=== PATIENT | male | born 1930 | race Caucasian/White ===

== ENCOUNTER 2017-12-18 02:02 | Inpatient (IN) | payer OTHER ==
[~2017-12-18] VITALS: Ht 170.2 cm; Wt 72.4 kg
[2017-12-18 03:20] LABS: HEMATOCRIT 33.5 % (38.0-50.0); HEMOGLOBIN 11.4 G/DL (12.5-16.6); MCH 31.1 PG (29.0-34.0); MCV 91.3 FL (86-99); RBC DIS.WIDTH-SD 50.4 % (39-53); RED BLOOD COUNT 3.67 M/uL (4.00-5.50); WHITE BLOOD COUNT 7.6 K/uL (4.1-10.2)
[2017-12-18 03:43] LABS: ALBUMIN 3.4 g/dL (3.2-4.8)
[2017-12-18 03:44] LABS: CHLORIDE 100 mEq/L (99-109); SODIUM 134 mEq/L (136-147)
[2017-12-18 03:46] LABS: GLUCOSE 148 mg/dL (70-99); TOTAL PROTEIN 6.5 g/dL (6.4-8.3)
[2017-12-18 03:48] LABS: TOTAL BILIRUBIN 0.5 mg/dL (0.0-1.0); TROP-I INTERPRETATION NEGATIVE; TROPONIN-I 0.04 ng/mL (0.0-0.30)
[2017-12-18 03:50] LABS: ALKALINE PHOSPHATASE 143 IU/L (3-129); CREATININE 1.8 mg/dL (0.6-1.3); GFR ESTIMATE (CALCULATED) 38 mL/min/ (58.99-99999)
[2017-12-18 03:51] LABS: AST (GOT) 246 IU/L (2-34); UREA NITROGEN (BUN) 39 mg/dL (9-23)
[2017-12-18 03:52] LABS: DIRECT BILIRUBIN 0.2 mg/dL (0.0-0.3)
[2017-12-18 03:53] LABS: ALT (GPT) 164 IU/L (3-49); LIPASE 27 U/L (1.0-51.0)
[2017-12-18 04:56] LABS: PLATELET CLUMPS PRESENT - PLATELET COUNT APPEARS ADEQUATE
[2017-12-18 05:36] LABS: PLATELET COUNT 165 K/uL (156-360)
[2017-12-18 05:37] LABS: INTER. NORMALIZED RATIO 1.2
[2017-12-18 05:40] LABS: PTT 26.5 SEC (25-37)
[2017-12-18 08:00] VITALS: BP 114/56
[2017-12-18 10:35] LABS: TROP-I INTERPRETATION NEGATIVE; TROPONIN-I 0.01 ng/mL (0.0-0.30)
[2017-12-18 11:15] VITALS: BP 139/91
[2017-12-18 13:15] LABS: FOLIC ACID (FOLATE) > 22.0 NG/ML (5.0-22.0)
[2017-12-18 14:10] LABS: GASTRIC OCCULT BLD. NEGATIVE
[2017-12-18 14:48] LABS: HEMOGLOBIN A1c (GLYCOHEMOGLOB) 5.7 % (Below 5.7)
[2017-12-18 17:01] VITALS: BP 93/55
[2017-12-18 17:09] LABS: APPEARANCE SL.HAZY ((CLEAR)); BILIRUBIN NEGATIVE; BLOOD LARGE; COLOR YELLOW ((YELLOW)); GLUCOSE (STRIP) NEGATIVE; KETONES NEGATIVE; LEUKOCYTES NEGATIVE; NITRITE NEGATIVE; PROTEIN (STRIP) 30; SPECIFIC GRAVITY 1.018 (1.000-1.030); UROBILINOGEN 0.2 MG/DL (0.2-1.0)
[2017-12-18 17:17] LABS: TROP-I INTERPRETATION NEGATIVE; TROPONIN-I 0.12 ng/mL (0.0-0.30)
[2017-12-18 17:46] LABS: EPITHELIAL CELLS RARE /HPF; RED BLOOD CELLS TNTC /HPF (0-5); WHITE BLOOD CELLS 0-5 /HPF (0-5)
[2017-12-18 17:48] LABS: BACTERIA 1+ /HPF; MUCUS RARE /LPF; UCUL ADDED? YES
[2017-12-18 20:13] VITALS: BP 105/54; BP 93/52
[2017-12-19] VITALS (7 sets, daily range): BP systolic 96–136; BP diastolic 45–62
[2017-12-19 05:15] LABS: HEMATOCRIT 31.2 % (38.0-50.0); HEMOGLOBIN 10.3 G/DL (12.5-16.6); MCH 30.3 PG (29.0-34.0); MCV 91.8 FL (86-99); PLATELET COUNT 150 K/uL (156-360); RBC DIS.WIDTH-CV 15.3 % (11.8-14.6); RBC DIS.WIDTH-SD 51.4 % (39-53); WHITE BLOOD COUNT 6.6 K/uL (4.1-10.2)
[2017-12-19 05:38] LABS: ALBUMIN 2.7 G/DL (3.2-4.8); ALKALINE PHOSPHATASE 114 IU/L (3-129); ALT (GPT) 96 IU/L (3-49); AST (GOT) 91 IU/L (2-34); DIRECT BILIRUBIN 0.1 mg/dL (0.0-0.3); TOTAL BILIRUBIN 0.4 MG/DL (0.0-1.0); TOTAL PROTEIN 5.1 G/DL (6.4-8.3)
[2017-12-19 06:14] LABS: CHLORIDE 109 MEQ/L (99-109); CREATININE 1.5 MG/DL (0.6-1.3); GFR ESTIMATE (CALCULATED) 47 mL/min/ (58.99-99999); SODIUM 140 MEQ/L (136-147); UREA NITROGEN (BUN) 32 mg/dL (9-23)
[2017-12-19 06:16] LABS: GLUCOSE 97 mg/dL (70-99)
[2017-12-19 06:46] LABS: NEUTROPHIL (%) ND % (45-76)
[2017-12-19 09:32] LABS: FERRITIN 966 NG/ML (22-322); IRON 22 MCG/DL (35-150); TRANSFERRIN (TIBC) 179.4 mg/dL (215-380); TRANSFERRIN SATUR. 12 % (20-55)
[2017-12-19 13:10] LABS: UR CREATININE CONCENTRATION 157.5 MG/DL; UR CREATININE CONCENTRATION 160.5 MG/DL
[2017-12-19 16:02] LABS: STOOL OCCULT BLD 1ST SPECIMEN NEGATIVE
[2017-12-20 00:24] VITALS: BP 121/56
[2017-12-20 03:58] VITALS: BP 128/58
[2017-12-20 07:48] VITALS: BP 106/53
[2017-12-20 08:23] LABS: BASOPHIL COUNT 0.1 K/uL (0-0.1); EOSINOPHIL (%) 12.1 % (0-5); EOSINOPHIL COUNT 0.7 K/uL (0-0.3); HEMATOCRIT 35.5 % (38.0-50.0); HEMOGLOBIN 11.7 G/DL (12.5-16.6); IMMATURE GRANULOCYTE (%) 0.3 % (0.0-0.7); LYMPHOCYTE (%) 13.3 % (15-42); LYMPHOCYTE COUNT 0.8 K/uL (1.0-2.8); MCH 30.3 PG (29.0-34.0); MONOCYTE (%) 6.9 % (3-12); MONOCYTE COUNT 0.4 K/uL (0-0.8); NEUTROPHIL (%) 66.4 % (45-76); NEUTROPHIL COUNT 4.1 K/uL (1.8-6.4); RBC DIS.WIDTH-CV 15.5 % (11.8-14.6); RED BLOOD COUNT 3.86 M/uL (4.00-5.50); WHITE BLOOD COUNT 6.1 K/uL (4.1-10.2)
[2017-12-20 08:32] LABS: PLATELET COUNT 200 K/uL (156-360)
[2017-12-20 08:57] LABS: ALT (GPT) 88 IU/L (3-49); AST (GOT) 71 IU/L (2-34); CHLORIDE 108 MEQ/L (99-109); CREATININE 1.4 MG/DL (0.6-1.3); DIRECT BILIRUBIN 0.1 mg/dL (0.0-0.3); GFR ESTIMATE (CALCULATED) 51 mL/min/ (58.99-99999); GLUCOSE 94 mg/dL (70-99); POTASSIUM 3.8 MEQ/L (3.7-5.4); SODIUM 140 MEQ/L (136-147); TOTAL PROTEIN 5.8 G/DL (6.4-8.3); UREA NITROGEN (BUN) 25 mg/dL (9-23)
[2017-12-20 09:00] LABS: ALKALINE PHOSPHATASE 171 IU/L (3-129); TOTAL BILIRUBIN 0.5 MG/DL (0.0-1.0)
[2017-12-20 10:49] VITALS: BP 120/59
[2017-12-20 16:36] VITALS: BP 109/56
[2017-12-20 17:27] VITALS: BP 105/51
[2017-12-21 00:30] VITALS: BP 136/60
[2017-12-21 06:07] LABS: BASOPHIL (%) 0.6 % (0-1); EOSINOPHIL (%) 7.9 % (0-5); EOSINOPHIL COUNT 0.5 K/uL (0-0.3); HEMOGLOBIN 10.5 G/DL (12.5-16.6); IMMATURE GRANULOCYTE (%) 0.6 % (0.0-0.7); LYMPHOCYTE COUNT 0.8 K/uL (1.0-2.8); MCH 29.6 PG (29.0-34.0); MCHC 32.8 G/DL (30.0-36.0); MCV 90.1 FL (86-99); MONOCYTE (%) 6.1 % (3-12); MONOCYTE COUNT 0.4 K/uL (0-0.8); NEUTROPHIL (%) 72.8 % (45-76); NEUTROPHIL COUNT 4.9 K/uL (1.8-6.4); PLATELET COUNT 190 K/uL (156-360); RBC DIS.WIDTH-CV 15.2 % (11.8-14.6); RBC DIS.WIDTH-SD 49.9 % (39-53); RED BLOOD COUNT 3.55 M/uL (4.00-5.50); WHITE BLOOD COUNT 6.7 K/uL (4.1-10.2)
[2017-12-21 06:37] LABS: ALBUMIN 2.6 G/DL (3.2-4.8); ALKALINE PHOSPHATASE 166 IU/L (3-129); ALT (GPT) 88 IU/L (3-49); AST (GOT) 70 IU/L (2-34); CHLORIDE 107 MEQ/L (99-109); CREATININE 1.2 MG/DL (0.6-1.3); DIRECT BILIRUBIN 0.1 mg/dL (0.0-0.3); GFR ESTIMATE (CALCULATED) > 59 mL/min/ (58.99-99999); GLUCOSE 97 mg/dL (70-99); POTASSIUM 3.3 MEQ/L (3.7-5.4); SODIUM 138 MEQ/L (136-147); TOTAL BILIRUBIN 0.5 MG/DL (0.0-1.0); TOTAL PROTEIN 5.5 G/DL (6.4-8.3); UREA NITROGEN (BUN) 22 mg/dL (9-23)
[2017-12-21 07:28] VITALS: BP 117/55
[2017-12-21 10:39] LABS: HEPATITIS B SURFACE ANTIGEN Nonreactive
[2017-12-21 10:40] LABS: ANTI-HEPATITIS A VIRUS (IGM) Nonreactive; HEPATITIS C ANTIBODY Nonreactive
[2017-12-21 10:42] LABS: ANTI-HEPATITIS B CORE (IGM) Nonreactive
[2017-12-21 15:30] VITALS: BP 124/58
[2017-12-22 00:11] VITALS: BP 137/62
[2017-12-22 07:00] VITALS: BP 134/60
[2017-12-22] MEDS ORDERED: XARELTO15 MG PO (12:40)
[2017-12-22] MEDS ORDERED: BISAC-EVAC10 MG PR (12:40)
[2017-12-22] MEDS ORDERED: XARELTO20 MG PO (12:40)
[2017-12-22] MEDS ORDERED: TAMSULOSIN HCL0.4 MG PO (12:40)
== END 2017-12-22 15:21 | DRG 871 ==
LOC: EME 02:02 → 5EAST 07:19 → EDOF 07:19 → ENRESERV 07:22 → 5EAST 07:51
PROVIDERS: Hospitalist; Internal Medicine
DX: A41.9 Sepsis, unspecified organism (principal); N39.0 Urinary tract infection, site not specified; K52.89 Other specified noninfective gastroenteritis and colitis; G93.40 Encephalopathy, unspecified; K56.41 Fecal impaction; N40.1 Benign prostatic hyperplasia with lower urinary tract symptoms; R33.8 Other retention of urine; I82.522 Chronic embolism and thrombosis of left iliac vein; I82.512 Chronic embolism and thrombosis of left femoral vein; N18.9 Chronic kidney disease, unspecified; F03.90 Unspecified dementia, unspecified severity, without behavioral disturbance, psychotic disturbance, mood disturbance, and anxiety; R73.03 Prediabetes; R79.89 Other specified abnormal findings of blood chemistry; D50.9 Iron deficiency anemia, unspecified; H10.9 Unspecified conjunctivitis; R26.9 Unspecified abnormalities of gait and mobility; R29.6 Repeated falls; Z66 Do not resuscitate; Z87.891 Personal history of nicotine dependence
CPT/HCPCS: 36600; 70450; 71046; 71250; 74018; 74176; 76705; 76770; 80048; 80074; 80076; 81003; 82043; 82140; 82271; 82272; 82436; 82570; 82607; 82728; 82746; 83036; 83540; 83605; 83690; 84133; 84300; 84443; 84466; 84484; 85025; 85025 91; 85027; 85610; 85730; 87040; 87086; 93306; 93970; 97530 GP; 99281; 99285; J0692; J1650; J2405; J7030; S0030